=== PATIENT | female | born 1950 | race Caucasian/White ===

== ENCOUNTER 2016-12-02 13:17 | Emergency (ER) | payer OTHER, MEDICAID ==
[~2016-12-02] VITALS: Ht 162.6 cm; Wt 104.0 kg
[2016-12-02] MEDS ORDERED: ONDANSETRON HCL 4MG/2ML VIAL IV STA (15:19)
[2016-12-02] MEDS ORDERED: SODIUM CHLORIDE 0.9% 1,000 ML IV ONE (15:19)
[2016-12-02] MEDS ORDERED: MORPHINE SULFATE 4 MG/ML CPJ (NOT FOR IM USE) IV STA (15:19)
[2016-12-02 17:05] LABS: CLARITY URINE CLEAR (CLEAR); COLOR URINE YELLOW (YELLOW); GLUCOSE URINE NEGATIVE (NEGATIVE); KETONES URINE NEGATIVE (NEGATIVE); LEUKOCYTE ESTERASE URINE NEGATIVE (NEGATIVE); NITRITE URINE NEGATIVE (NEGATIVE); OCCULT BLOOD URINE NEGATIVE (NEGATIVE); PH URINE 8.5 (4.5-8.0); PROTEIN URINE NEGATIVE (NEGATIVE); SPECIFIC GRAVITY URINE 1.007 (1.005-1.030); UROBILINOGEN URINE 0.2 E.U./dL (0.2-1.0)
[2016-12-02 17:08] LABS: BASOPHILS % 0.5 % (0.0-2.0); EOSINOPHILS % 0.5 % (0.0-5.0); HEMATOCRIT. 37.2 % (36.0-48.0); HEMOGLOBIN. 12.2 g/dL (12.0-16.0); LYMPHOCYTES % 33.7 % (20.0-50.0); MEAN CORPUSCULAR HEMOGLOBIN 28.7 pg (28.0-32.0); MEAN CORPUSCULAR VOLUME 87.5 fL (81.0-99.0); MEAN PLATELET VOLUME 7.7 fl (7.4-10.4); MONOCYTES % 6.6 % (2.0-8.0); NEUTROPHILS % 58.7 % (40.0-76.0); PLATELET 325 x1000/uL (130-400); RED BLOOD CELL COUNT 4.25 mill/uL (4.2-5.4)
[2016-12-02 17:11] LABS: CHLORIDE 108 mEq/L (98-107)
[2016-12-02 17:12] LABS: PROTHROMBIN TIME 10.7 sec (9.4-11.6)
[2016-12-02 17:21] LABS: CARBON DIOXIDE 29 mEq/L (21-32)
[2016-12-02] MEDS ORDERED: IOHEXOL-300 100 ML BOTTLE ONE (20:17)
[2016-12-02 21:20] VITALS: BP 152/78
== END 2016-12-02 21:10 | disposition home or self-care (01) ==
LOC: ER 14:45
DX: K43.9 Ventral hernia without obstruction or gangrene (principal); N95.0 Postmenopausal bleeding; I10 Essential (primary) hypertension; E78.00 Pure hypercholesterolemia, unspecified; E11.9 Type 2 diabetes mellitus without complications; E03.9 Hypothyroidism, unspecified; N93.9 Abnormal uterine and vaginal bleeding, unspecified; R10.2 Pelvic and perineal pain; Z85.3 Personal history of malignant neoplasm of breast; Z90.49 Acquired absence of other specified parts of digestive tract; Z79.4 Long term (current) use of insulin
CPT/HCPCS: 36415; 74177; 76830; 76856; 80053; 81003; 83690; 85025; 85610; 96361; 96374; 96375; 99285; J2270; J2405; J7030; Q9967

== ENCOUNTER 2020-07-15 20:25 | Inpatient (IN) | payer OTHER, MEDICAID ==
[~2020-07-15] VITALS: Ht 160 cm; Wt 107.5 kg
[2020-07-15] MEDS ORDERED: MORPHINE SULFATE 4 MG/ML CPJ (NOT FOR IM USE) IV ONE (22:45)
[2020-07-15] MEDS ORDERED: MORPHINE SULFATE 2 MG/ML CPJ (NOT FOR IM USE) IV ONE (22:45)
[2020-07-15 22:53] LABS: BASOPHILS % 0.1 % (0.0-2.0); HEMATOCRIT. 37.8 % (36.0-48.0); HEMOGLOBIN. 12.5 g/dL (12.0-16.0); LYMPHOCYTES % 8.4 % (20.0-50.0); MEAN CORPUSCULAR HEMOGLOBIN 29.8 pg (28.0-32.0); MEAN CORPUSCULAR VOLUME 90.1 fL (81.0-99.0); MEAN PLATELET VOLUME 7.7 fl (7.4-10.4); NEUTROPHILS % 85.5 % (40.0-76.0); PLATELET 355 x1000/uL (130-400)
[2020-07-15 22:58] LABS: CHLORIDE 108 mEq/L (98-107)
[2020-07-16] VITALS (8 sets, daily range): BP systolic 111–140; BP diastolic 55–86
[2020-07-16] MEDS ORDERED: CEFTRIAXONE 1 G PREMIX 50 ML IV ONE (00:45)
[2020-07-16] MEDS ORDERED: SODIUM CHLORIDE 0.9% 1,000 ML IV ONE (00:45)
[2020-07-16 04:57] LABS: COLOR URINE YELLOW (YELLOW)
[2020-07-16 04:58] LABS: CLARITY URINE CLOUDY (CLEAR); PROTEIN URINE TRACE (NEGATIVE); SPECIFIC GRAVITY URINE 1.037 (1.005-1.030)
[2020-07-16 04:59] LABS: KETONES URINE 2+ (NEGATIVE); NITRITE URINE NEGATIVE (NEGATIVE); OCCULT BLOOD URINE 4+ (NEGATIVE)
[2020-07-16 05:00] LABS: LEUKOCYTE ESTERASE URINE 2+ (NEGATIVE); UROBILINOGEN URINE 0.2 E.U./dL (0.2-1.0)
[2020-07-16] MEDS ORDERED: METF-416 MT (10:56)
[2020-07-16] MEDS ORDERED: LEVO150T8 MT (10:57)
[2020-07-16] MEDS ORDERED: GUAIFENESIN 200MG/10ML SUGAR FREE UDC PO PRN (11:45)
[2020-07-16] MEDS ORDERED: NA PHOS,M-B/NA PHOS,DI-BA ENEMA 118ML PR PRN (11:45)
[2020-07-16] MEDS ORDERED: ACETAMINOPHEN 650MG SUPP PR PRN (11:45)
[2020-07-16] MEDS ORDERED: MAGNESIUM/ALUMINUM HYDROXIDE/SIMETHICONE 30ML UDC PO PRN (11:45)
[2020-07-16] MEDS ORDERED: DIPHENHYDRAMINE 50MG/ML VIAL IV PRN (11:45)
[2020-07-16] MEDS ORDERED: ONDANSETRON HCL 4MG/2ML INJ IV PRN (11:45)
[2020-07-16] MEDS ORDERED: IPRATROPIUM/ALBUTEROL 0.5-3(2.5)MG/3ML NEB NEB PRN (11:45)
[2020-07-16] MEDS ORDERED: DEXTROSE 50% WATER 50ML SYRINGE IV PRN (11:45)
[2020-07-16] MEDS ORDERED: DOCUSATE SODIUM 100MG CAPSULE PO PRN (11:45)
[2020-07-16] MEDS: BLOOD SUGAR DIAGNOSTIC STRIP TEST SCH ×3 (12:37→21:08)
[2020-07-16] MEDS: SODIUM CHLORIDE 0.45% 1,000 ML IV SCH (12:38)
[2020-07-16] MEDS: MORPHINE SULFATE 2 MG/ML CPJ (NOT FOR IM USE) IV PRN (12:39)
[2020-07-16] MEDS: INSULIN LISPRO 100 UNITS/ML SUBCUT SCH ×3 (13:26→21:32)
[2020-07-16] MEDS: PIPERACILLIN/TAZOBACTAM 3.375 G in DEXT 5% WATER 100 ML IV SCH (13:27)
[2020-07-16 13:31] LABS: BASOPHILS % 0.5 % (0.0-2.0); HEMOGLOBIN. 10.6 g/dL (12.0-16.0); LYMPHOCYTES % 13.6 % (20.0-50.0); MEAN CORPUSCULAR HEMOGLOBIN 30.1 pg (28.0-32.0); MEAN CORPUSCULAR VOLUME 90.5 fL (81.0-99.0); MEAN PLATELET VOLUME 7.5 fl (7.4-10.4); MONOCYTES % 5.5 % (2.0-8.0); NEUTROPHILS % 80.4 % (40.0-76.0); PLATELET 304 x1000/uL (130-400); RED BLOOD CELL COUNT 3.53 mill/uL (4.2-5.4); RED CELL DISTRIBUTION WIDTH 13.1 % (11.6-14.6)
[2020-07-16 13:40] LABS: CHLORIDE 110 mEq/L (98-107); PROTHROMBIN TIME 10.5 sec (9.6-11.0)
[2020-07-16 13:48] LABS: HDL CHOLESTEROL 54 mg/dL (40-59)
[2020-07-16 13:49] LABS: CREATINE KINASE 765 IU/L (26-192); LDL CHOLESTEROL 76 mg/dL (5-100)
[2020-07-16] MEDS ORDERED: VANCOMYCIN 2,000 MG in DEXT 5% WATER 500 ML IV NR (14:00)
[2020-07-16] MEDS ORDERED: INSULIN LISPRO 100 UNITS/ML SUBCUT NR (17:45)
[2020-07-16] MEDS ORDERED: INSULIN GLARGINE UD 100 UNITS/ML SYR SUBCUT NR (18:00)
[2020-07-16 18:28] LABS: CREATINE KINASE 630 IU/L (26-192)
[2020-07-16 18:29] LABS: CREATINE KINASE MB FRACTION 8.9 ng/mL (0.5-3.6)
[2020-07-16] MEDS: FAMOTIDINE 20MG TABLET PO SCH (21:08)
[2020-07-16] MEDS: LORAZEPAM 0.5MG TABLET PO PRN (23:00)
[2020-07-16] MEDS: INSULIN GLARGINE UD 100 UNITS/ML SYR SUBCUT SCH (23:05)
[2020-07-16 23:21] LABS: CREATINE KINASE 502 IU/L (26-192)
[2020-07-16 23:22] LABS: CREATINE KINASE MB FRACTION 6.9 ng/mL (0.5-3.6)
[2020-07-17] VITALS (12 sets, daily range): BP systolic 114–152; BP diastolic 52–81
[2020-07-17] MEDS: PIPERACILLIN/TAZOBACTAM 3.375 G in DEXT 5% WATER 100 ML IV SCH ×4 (01:04→19:17)
[2020-07-17] MEDS: SODIUM CHLORIDE 0.45% 1,000 ML IV SCH ×2 (04:59→21:25)
[2020-07-17 06:39] LABS: BASOPHILS % 0.6 % (0.0-2.0); EOSINOPHILS % 0.4 % (0.0-5.0); HEMOGLOBIN. 9.7 g/dL (12.0-16.0); LYMPHOCYTES % 25.2 % (20.0-50.0); MEAN CORPUSCULAR HEMOGLOBIN 30.3 pg (28.0-32.0); MEAN CORPUSCULAR VOLUME 90.4 fL (81.0-99.0); MEAN PLATELET VOLUME 7.9 fl (7.4-10.4); MONOCYTES % 5.9 % (2.0-8.0); NEUTROPHILS % 67.9 % (40.0-76.0); PLATELET 291 x1000/uL (130-400); RED BLOOD CELL COUNT 3.21 mill/uL (4.2-5.4); RED CELL DISTRIBUTION WIDTH 13.2 % (11.6-14.6)
[2020-07-17 06:57] LABS: CHLORIDE 106 mEq/L (98-107)
[2020-07-17 07:08] LABS: LDL CHOLESTEROL 72 mg/dL (5-100)
[2020-07-17 07:10] LABS: T4 FREE 1.42 ng/dL (0.76-1.46)
[2020-07-17 07:11] LABS: HDL CHOLESTEROL 43 mg/dL (40-59)
[2020-07-17] MEDS: BLOOD SUGAR DIAGNOSTIC STRIP TEST SCH ×4 (07:49→21:25)
[2020-07-17] MEDS: INSULIN LISPRO 100 UNITS/ML SUBCUT SCH ×5 (08:00→22:26)
[2020-07-17] MEDS: INSULIN GLARGINE UD 100 UNITS/ML SYR SUBCUT SCH ×2 (10:08→22:27)
[2020-07-17] MEDS: MORPHINE SULFATE 2 MG/ML CPJ (NOT FOR IM USE) IV PRN (10:10)
[2020-07-17] MEDS ORDERED: INSULIN GLARGINE UD 100 UNITS/ML SYR SUBCUT NR (12:30)
[2020-07-17] MEDS ORDERED: LIDOCAINE HCL 1% 20ML VIAL (Pyxis) INJ ONE (13:42)
[2020-07-17] MEDS ORDERED: VANCOMYCIN 1250MG in DEXTROSE 5% WATER 250ML IV SCH (15:00)
[2020-07-17 16:40] LABS: HEMATOCRIT 29.9 % (36.0-48.0)
[2020-07-17] MEDS ORDERED: IOHEXOL-350 100 ML BOTTLE ONE (17:38)
[2020-07-17] MEDS: DILTIAZEM HCL 30MG TABLET PO SCH (21:25)
[2020-07-17] MEDS: FAMOTIDINE 20MG TABLET PO SCH (21:25)
[2020-07-18] VITALS (13 sets, daily range): BP systolic 110–173; BP diastolic 54–80
[2020-07-18] MEDS: PIPERACILLIN/TAZOBACTAM 3.375 G in DEXT 5% WATER 100 ML IV SCH ×4 (01:11→18:55)
[2020-07-18] MEDS: LORAZEPAM 0.5MG TABLET PO PRN (01:11)
[2020-07-18 05:03] LABS: CHLORIDE 104 mEq/L (98-107)
[2020-07-18 06:11] LABS: BASOPHILS % 0.4 % (0.0-2.0); EOSINOPHILS % 0.9 % (0.0-5.0); HEMATOCRIT. 29.9 % (36.0-48.0); HEMOGLOBIN. 10.3 g/dL (12.0-16.0); LYMPHOCYTES % 30.5 % (20.0-50.0); MEAN CORPUSCULAR HEMOGLOBIN 30.7 pg (28.0-32.0); MEAN CORPUSCULAR VOLUME 89.3 fL (81.0-99.0); MEAN PLATELET VOLUME 7.9 fl (7.4-10.4); MONOCYTES % 6.6 % (2.0-8.0); NEUTROPHILS % 61.6 % (40.0-76.0); PLATELET 302 x1000/uL (130-400); RED BLOOD CELL COUNT 3.35 mill/uL (4.2-5.4); RED CELL DISTRIBUTION WIDTH 12.8 % (11.6-14.6)
[2020-07-18] MEDS: SODIUM CHLORIDE 0.45% 1,000 ML IV SCH (06:26)
[2020-07-18] MEDS: DILTIAZEM HCL 30MG TABLET PO SCH (06:43)
[2020-07-18] MEDS: ACETAMINOPHEN 325MG TABLET PO PRN (06:56)
[2020-07-18] MEDS: BLOOD SUGAR DIAGNOSTIC STRIP TEST SCH ×4 (07:31→21:00)
[2020-07-18] MEDS: INSULIN LISPRO 100 UNITS/ML SUBCUT SCH ×4 (08:35→22:28)
[2020-07-18] MEDS: HYDROCODONE/ACETAMINOPHEN 5/325MG TABLET PO PRN ×2 (09:47→19:55)
[2020-07-18] MEDS: INSULIN GLARGINE UD 100 UNITS/ML SYR SUBCUT SCH ×2 (09:49→22:51)
[2020-07-18] MEDS ORDERED: INSULIN GLARGINE UD 100 UNITS/ML SYR SUBCUT NR (16:00)
[2020-07-18] MEDS: METOPROLOL TARTRATE 25MG TABLET PO SCH (22:12)
[2020-07-18] MEDS: FAMOTIDINE 20MG TABLET PO SCH (22:13)
[2020-07-18] MEDS: MORPHINE SULFATE 2 MG/ML CPJ (NOT FOR IM USE) IV PRN (22:22)
[2020-07-19] VITALS (14 sets, daily range): BP systolic 132–183; BP diastolic 67–87
[2020-07-19] MEDS: PIPERACILLIN/TAZOBACTAM 3.375 G in DEXT 5% WATER 100 ML IV SCH ×4 (00:40→21:00)
[2020-07-19] MEDS: LORAZEPAM 0.5MG TABLET PO PRN (00:51)
[2020-07-19] MEDS: HYDROCODONE/ACETAMINOPHEN 5/325MG TABLET PO PRN (05:46)
[2020-07-19 06:16] LABS: BASOPHILS % 0.4 % (0.0-2.0); EOSINOPHILS % 1.3 % (0.0-5.0); HEMATOCRIT. 30.6 % (36.0-48.0); HEMOGLOBIN. 10.5 g/dL (12.0-16.0); LYMPHOCYTES % 36.9 % (20.0-50.0); MEAN CORPUSCULAR HEMOGLOBIN 30.9 pg (28.0-32.0); MEAN CORPUSCULAR VOLUME 90.1 fL (81.0-99.0); MEAN PLATELET VOLUME 7.8 fl (7.4-10.4); MONOCYTES % 7.3 % (2.0-8.0); NEUTROPHILS % 54.1 % (40.0-76.0); PLATELET 312 x1000/uL (130-400); RED CELL DISTRIBUTION WIDTH 13.1 % (11.6-14.6)
[2020-07-19 06:29] LABS: CHLORIDE 103 mEq/L (98-107)
[2020-07-19] MEDS: MORPHINE SULFATE 2 MG/ML CPJ (NOT FOR IM USE) IV PRN (07:02)
[2020-07-19] MEDS: BLOOD SUGAR DIAGNOSTIC STRIP TEST SCH ×4 (07:30→21:04)
[2020-07-19] MEDS: METOPROLOL TARTRATE 25MG TABLET PO SCH ×2 (09:14→21:04)
[2020-07-19] MEDS: INSULIN GLARGINE UD 100 UNITS/ML SYR SUBCUT SCH (09:15)
[2020-07-19] MEDS: INSULIN LISPRO 100 UNITS/ML SUBCUT SCH ×4 (09:16→21:39)
[2020-07-19] MEDS: DEXT 5%/0.45% NACL KCL 10MEQ/L 1,000 ML IV SCH (18:04)
[2020-07-19] MEDS: INS NPH/REG HM 70-30 100 UNITS/ML 10ML VIAL (HUMULIN 70-30) SUBCUT SCH (18:14)
[2020-07-19] MEDS: FAMOTIDINE 20MG TABLET PO SCH (21:04)
[2020-07-20] VITALS (17 sets, daily range): BP systolic 132–195; BP diastolic 60–92
[2020-07-20] MEDS: PIPERACILLIN/TAZOBACTAM 3.375 G in DEXT 5% WATER 100 ML IV SCH ×4 (01:39→18:06)
[2020-07-20] MEDS: MORPHINE SULFATE 2 MG/ML CPJ (NOT FOR IM USE) IV PRN ×2 (02:43→21:09)
[2020-07-20 06:29] LABS: BASOPHILS % 0.4 % (0.0-2.0); EOSINOPHILS % 1.2 % (0.0-5.0); HEMATOCRIT. 31.3 % (36.0-48.0); HEMOGLOBIN. 10.8 g/dL (12.0-16.0); LYMPHOCYTES % 26.3 % (20.0-50.0); MEAN CORPUSCULAR HEMOGLOBIN 30.9 pg (28.0-32.0); MEAN CORPUSCULAR VOLUME 90.1 fL (81.0-99.0); MEAN PLATELET VOLUME 7.6 fl (7.4-10.4); MONOCYTES % 7.5 % (2.0-8.0); NEUTROPHILS % 64.6 % (40.0-76.0); PLATELET 303 x1000/uL (130-400); RED BLOOD CELL COUNT 3.48 mill/uL (4.2-5.4)
[2020-07-20 06:41] LABS: CHLORIDE 103 mEq/L (98-107)
[2020-07-20] MEDS: METOPROLOL TARTRATE 25MG TABLET PO SCH ×2 (08:02→20:42)
[2020-07-20] MEDS ORDERED: FENTANYL CITRATE/PF 50MCG/ML 2ML VIAL ONE (08:10)
[2020-07-20] MEDS ORDERED: ROCURONIUM BROMIDE 10MG/ML VIAL 5ML IV ONE (08:10)
[2020-07-20] MEDS ORDERED: PROPOFOL 200MG/20ML VIAL IV ONE (08:10)
[2020-07-20] MEDS ORDERED: GLYCOPYRROLATE 0.2 MG/ML 2ML VIAL ONE (08:10)
[2020-07-20] MEDS ORDERED: MIDAZOLAM HCL 2 MG/2 ML VIAL ONE (08:10)
[2020-07-20] MEDS ORDERED: NEOSTIGMINE METHYLSULFATE 1MG/ML 10 ML VIAL ONE (08:10)
[2020-07-20] MEDS ORDERED: ONDANSETRON HCL 4MG/2ML INJ ONE (08:11)
[2020-07-20] MEDS ORDERED: SUCCINYLCHOLINE CHLORIDE 200MG/10ML IV ONE (08:11)
[2020-07-20] MEDS ORDERED: CEFAZOLIN SODIUM 1000MG/VIAL ONE (08:11)
[2020-07-20] MEDS ORDERED: SODIUM CHLORIDE 0.9% 10ML VIAL ONE (08:11)
[2020-07-20] MEDS ORDERED: METOCLOPRAMIDE HCL 10MG/2ML VIAL ONE (08:11)
[2020-07-20] MEDS ORDERED: PHENYLEPHRINE HCL 10 MG/ML 1ML (IV VIAL) IV ONE (08:11)
[2020-07-20] MEDS: BLOOD SUGAR DIAGNOSTIC STRIP TEST SCH ×4 (08:14→20:41)
[2020-07-20] MEDS: INSULIN LISPRO 100 UNITS/ML SUBCUT SCH ×4 (08:24→20:29)
[2020-07-20] MEDS: DEXT 5%/0.45% NACL KCL 10MEQ/L 1,000 ML IV SCH ×2 (08:24→18:06)
[2020-07-20] MEDS ORDERED: LABETALOL HCL 5MG/ML VIAL 20ML IV ONE ×2 (08:34→11:55)
[2020-07-20] MEDS: INS NPH/REG HM 70-30 100 UNITS/ML 10ML VIAL (HUMULIN 70-30) SUBCUT SCH ×2 (09:00→18:05)
[2020-07-20] MEDS ORDERED: ROPIVACAINE HCL 10MG/ML 20 ML VIAL EPI ONE (09:21)
[2020-07-20] MEDS ORDERED: BACITRACIN 15GM TUBE TOP ONE (09:25)
[2020-07-20] MEDS ORDERED: SODIUM CHLORIDE 0.9% INJ 10ML FLUSH IVF ONE (09:26)
[2020-07-20] MEDS ORDERED: VANCOMYCIN HCL 1 GM/VIAL ONE (09:26)
[2020-07-20] MEDS ORDERED: POLYMYXIN B SULFATE 500000 UNITS/VIAL ONE (09:26)
[2020-07-20] MEDS ORDERED: LIDOCAINE HCL/EPINEPHRINE 1%-EPI 1:100,000 10 ML VIAL ONE (11:39)
[2020-07-20] MEDS ORDERED: MEPERIDINE HCL/PF 25MG/ML CPJ IV PRN (12:45)
[2020-07-20] MEDS: CEFAZOLIN 2,000 MG in DEXT 5% WATER 100 ML IV SCH (16:15)
[2020-07-20] MEDS: FAMOTIDINE 20MG TABLET PO SCH (20:42)
[2020-07-20] MEDS: LORAZEPAM 0.5MG TABLET PO PRN (21:45)
[2020-07-20] MEDS: HYDROCODONE/ACETAMINOPHEN 5/325MG TABLET PO PRN (21:45)
[2020-07-20] MEDS: CLONIDINE 0.1MG TABLET PO PRN (21:45)
[2020-07-20] MEDS: ACETAMINOPHEN 325MG TABLET PO PRN (23:08)
[2020-07-21] VITALS (11 sets, daily range): BP systolic 136–155; BP diastolic 64–78
[2020-07-21] MEDS: CEFAZOLIN 2,000 MG in DEXT 5% WATER 100 ML IV SCH ×3 (00:15→17:12)
[2020-07-21] MEDS: MORPHINE SULFATE 2 MG/ML CPJ (NOT FOR IM USE) IV PRN ×4 (00:16→21:02)
[2020-07-21] MEDS: PIPERACILLIN/TAZOBACTAM 3.375 G in DEXT 5% WATER 100 ML IV SCH ×2 (01:48→06:16)
[2020-07-21] MEDS: HYDROCODONE/ACETAMINOPHEN 5/325MG TABLET PO PRN ×2 (02:02→09:54)
[2020-07-21] MEDS: DEXT 5%/0.45% NACL KCL 10MEQ/L 1,000 ML IV SCH (06:18)
[2020-07-21 06:23] LABS: BASOPHILS % 0.4 % (0.0-2.0); EOSINOPHILS % 0.6 % (0.0-5.0); HEMATOCRIT. 30.4 % (36.0-48.0); LYMPHOCYTES % 20.6 % (20.0-50.0); MEAN CORPUSCULAR HEMOGLOBIN 29.9 pg (28.0-32.0); MEAN PLATELET VOLUME 7.5 fl (7.4-10.4); MONOCYTES % 7.9 % (2.0-8.0); NEUTROPHILS % 70.5 % (40.0-76.0); PLATELET 286 x1000/uL (130-400); RED BLOOD CELL COUNT 3.35 mill/uL (4.2-5.4); RED CELL DISTRIBUTION WIDTH 13.3 % (11.6-14.6)
[2020-07-21] MEDS: BLOOD SUGAR DIAGNOSTIC STRIP TEST SCH ×4 (07:40→21:03)
[2020-07-21 07:49] LABS: CHLORIDE 105 mEq/L (98-107)
[2020-07-21] MEDS: INSULIN LISPRO 100 UNITS/ML SUBCUT SCH ×4 (08:00→21:01)
[2020-07-21] MEDS: INS NPH/REG HM 70-30 100 UNITS/ML 10ML VIAL (HUMULIN 70-30) SUBCUT SCH ×2 (09:00→18:32)
[2020-07-21] MEDS: METOPROLOL TARTRATE 25MG TABLET PO SCH (09:54)
[2020-07-21] MEDS: LORAZEPAM 0.5MG TABLET PO PRN (09:54)
[2020-07-21] MEDS ORDERED: METOPROLOL TARTRATE 25MG TABLET PO NR (10:00)
[2020-07-21] MEDS ORDERED: LACTULOSE 20G/30ML UDC PO NR (10:00)
[2020-07-21 10:19] LABS: BG BASE EXCESS 3.2 mmol/L (-2.0-2.0); BG CARBOXYHEMOGLOBIN 0.4 % (0.5-1.5); BG DEOXYHEMOGLOBIN 7.4 % (0.0-5.0); BG FRACTION INSPIRED OXYGEN 21; BG HCO3 ACT 27.9 mmol/L (22.0-26.0); BG METHEMOGLOBIN 0.1 % (0.0-1.5); BG OXYGEN SATURATION 92.6 % (92.0-98.5); BG OXYHEMOGLOBIN 92.1 % (94.0-97.0); BG PCO2 43.3 mmHg (35.0-45.0); BG PH 7.427 (7.350-7.450); BG PO2 64.2 mmHg (75.0-100.0); BG SAMPLE SITE LEFT RADIAL; BG VENT MODE ROOM AIR
[2020-07-21] MEDS: DOCUSATE SODIUM 100MG CAPSULE PO SCH ×2 (13:31→17:12)
[2020-07-21] MEDS: HYDROCODONE/APAP 7.5/325MG 1 TAB TABLET PO PRN (17:13)
[2020-07-21] MEDS: CLONIDINE 0.1MG TABLET PO PRN ×2 (18:41→23:28)
[2020-07-21] MEDS ORDERED: LORAZEPAM 0.5MG TABLET PO PRN (19:30)
[2020-07-21] MEDS: FAMOTIDINE 20MG TABLET PO SCH (20:59)
[2020-07-21] MEDS: METOPROLOL TARTRATE 50MG TABLET PO SCH (21:00)
[2020-07-22] VITALS (7 sets, daily range): BP systolic 117–152; BP diastolic 55–84
[2020-07-22] MEDS: CEFAZOLIN 2,000 MG in DEXT 5% WATER 100 ML IV SCH ×2 (00:27→11:40)
[2020-07-22] MEDS: HYDROCODONE/APAP 7.5/325MG 1 TAB TABLET PO PRN ×2 (02:53→14:34)
[2020-07-22] MEDS: MORPHINE SULFATE 2 MG/ML CPJ (NOT FOR IM USE) IV PRN ×2 (06:01→20:16)
[2020-07-22 06:02] LABS: CHLORIDE 102 mEq/L (98-107)
[2020-07-22 06:20] LABS: BASOPHILS % 0.6 % (0.0-2.0); EOSINOPHILS % 0.6 % (0.0-5.0); HEMATOCRIT. 31.4 % (36.0-48.0); HEMOGLOBIN. 10.1 g/dL (12.0-16.0); LYMPHOCYTES % 18.2 % (20.0-50.0); MEAN CORPUSCULAR HEMOGLOBIN 29.5 pg (28.0-32.0); MEAN CORPUSCULAR VOLUME 91.8 fL (81.0-99.0); MEAN PLATELET VOLUME 7.7 fl (7.4-10.4); MONOCYTES % 8.8 % (2.0-8.0); NEUTROPHILS % 71.8 % (40.0-76.0); PLATELET 272 x1000/uL (130-400); RED BLOOD CELL COUNT 3.41 mill/uL (4.2-5.4); RED CELL DISTRIBUTION WIDTH 13.6 % (11.6-14.6)
[2020-07-22] MEDS: BLOOD SUGAR DIAGNOSTIC STRIP TEST SCH ×4 (07:30→20:06)
[2020-07-22] MEDS: INSULIN LISPRO 100 UNITS/ML SUBCUT SCH ×4 (08:00→20:18)
[2020-07-22] MEDS: DOCUSATE SODIUM 100MG CAPSULE PO SCH ×2 (09:56→17:07)
[2020-07-22] MEDS: METOPROLOL TARTRATE 50MG TABLET PO SCH ×2 (09:57→20:16)
[2020-07-22] MEDS: INS NPH/REG HM 70-30 100 UNITS/ML 10ML VIAL (HUMULIN 70-30) SUBCUT SCH ×2 (10:00→17:21)
[2020-07-22] MEDS ORDERED: LACTULOSE 20G/30ML UDC PO SCH (13:30)
[2020-07-22] MEDS ORDERED: BISACODYL 10MG SUPP PR SCH (13:30)
[2020-07-22] MEDS ORDERED: LACTULOSE 20G/30ML UDC PO ONE (13:30)
[2020-07-22] MEDS ORDERED: HYDR-4005 MT (15:40)
[2020-07-22] MEDS ORDERED: DOCU-138 MT (15:40)
[2020-07-22] MEDS ORDERED: AMLO2.5T2 MT (16:03)
[2020-07-22] MEDS ORDERED: METO-539 MT (16:03)
[2020-07-22] MEDS: AMLODIPINE 2.5MG TABLET PO SCH (20:16)
[2020-07-22] MEDS: FAMOTIDINE 20MG TABLET PO SCH (20:16)
[2020-07-23] VITALS (7 sets, daily range): BP systolic 124–168; BP diastolic 53–80
[2020-07-23] MEDS: MORPHINE SULFATE 2 MG/ML CPJ (NOT FOR IM USE) IV PRN ×2 (03:52→15:33)
[2020-07-23 07:08] LABS: BASOPHILS % 0.4 % (0.0-2.0); EOSINOPHILS % 1.2 % (0.0-5.0); HEMATOCRIT. 29.3 % (36.0-48.0); HEMOGLOBIN. 9.8 g/dL (12.0-16.0); LYMPHOCYTES % 20.8 % (20.0-50.0); MEAN CORPUSCULAR HEMOGLOBIN 30.6 pg (28.0-32.0); MEAN CORPUSCULAR VOLUME 91.6 fL (81.0-99.0); MEAN PLATELET VOLUME 7.4 fl (7.4-10.4); MONOCYTES % 8.5 % (2.0-8.0); NEUTROPHILS % 69.1 % (40.0-76.0); PLATELET 270 x1000/uL (130-400); RED BLOOD CELL COUNT 3.21 mill/uL (4.2-5.4); RED CELL DISTRIBUTION WIDTH 13.6 % (11.6-14.6)
[2020-07-23 07:09] LABS: CHLORIDE 105 mEq/L (98-107)
[2020-07-23] MEDS: INSULIN LISPRO 100 UNITS/ML SUBCUT SCH ×2 (08:00→12:20)
[2020-07-23] MEDS: BLOOD SUGAR DIAGNOSTIC STRIP TEST SCH ×2 (08:19→12:00)
[2020-07-23] MEDS: AMLODIPINE 2.5MG TABLET PO SCH (11:50)
[2020-07-23] MEDS: DOCUSATE SODIUM 100MG CAPSULE PO SCH ×2 (11:51→16:36)
[2020-07-23] MEDS: METOPROLOL TARTRATE 50MG TABLET PO SCH (11:51)
[2020-07-23] MEDS: INS NPH/REG HM 70-30 100 UNITS/ML 10ML VIAL (HUMULIN 70-30) SUBCUT SCH ×2 (11:52→16:42)
[2020-07-23] MEDS: HYDROCODONE/APAP 7.5/325MG 1 TAB TABLET PO PRN (16:38)
== END 2020-07-23 18:05 | disposition home or self-care (01) | DRG 854 ==
LOC: ER 20:31 → 5EST 07-16 02:33 → ENRESERV 07-16 07:56
PROVIDERS: ADMIT Internal Medicine; ATTEND Internal Medicine
PROC: B54NZZA Ultrasonography of Left Upper Extremity Veins, Guidance (ICD-10-PCS; 2020-07-17)
PROC: 05HY33Z Insertion of Infusion Device into Upper Vein, Percutaneous Approach (ICD-10-PCS; 2020-07-17)
PROC: 0PSC04Z Reposition Right Humeral Head with Internal Fixation Device, Open Approach (ICD-10-PCS; principal; 2020-07-20)
DX: A41.51 Sepsis due to Escherichia coli [E. coli] (principal); N39.0 Urinary tract infection, site not specified; M62.82 Rhabdomyolysis; C78.00 Secondary malignant neoplasm of unspecified lung; S42.211A Unspecified displaced fracture of surgical neck of right humerus, initial encounter for closed fracture; Z68.41 Body mass index [BMI] 40.0-44.9, adult; I10 Essential (primary) hypertension; E78.5 Hyperlipidemia, unspecified; E11.65 Type 2 diabetes mellitus with hyperglycemia; E03.9 Hypothyroidism, unspecified; E66.9 Obesity, unspecified; E78.00 Pure hypercholesterolemia, unspecified; K59.00 Constipation, unspecified; E05.90 Thyrotoxicosis, unspecified without thyrotoxic crisis or storm; W01.0XXA Fall on same level from slipping, tripping and stumbling without subsequent striking against object, initial encounter; Z20.822 Contact with and (suspected) exposure to COVID-19; R26.89 Other abnormalities of gait and mobility; R31.9 Hematuria, unspecified; K76.0 Fatty (change of) liver, not elsewhere classified; Y99.8 Other external cause status; Y93.89 Activity, other specified; Z79.84 Long term (current) use of oral hypoglycemic drugs; Z79.899 Other long term (current) drug therapy; Y92.009 Unspecified place in unspecified non-institutional (private) residence as the place of occurrence of the external cause; Z85.3 Personal history of malignant neoplasm of breast; Z90.10 Acquired absence of unspecified breast and nipple; Z90.49 Acquired absence of other specified parts of digestive tract
CPT/HCPCS: 36415; 36600; 71045; 71275; 72170; 73030; 73060; 73200; 74176; 76000; 76700; 76937; 80048; 80053; 80061; 81003; 82375; 82550; 82553; 82805; 82962; 83036; 83735; 84145; 84439; 84443; 84484; 85014; 85018; 85025; 85379; 86304; 86850; 86900; 87077; 87186; 87426; 93005; 93306; 93970; 94618; 97110; 97116; 97162; 97530; 97535; 99285; C1713; C1725; J0330; J0690; J0696; J1200; J1815; J2175; J2250; J2270; J2370; J2405; J2543; J2704; J2710; J2765; J2795; J3010; J3370; J3490; J7030; J7060; Q9967; C1762